=== PATIENT | male | born 1960 | race African-American/Black ===

== ENCOUNTER 2016-09-01 04:02 | Emergency (ER) | payer MEDICAID ==
[~2016-09-01] VITALS: Ht 172.7 cm; Wt 90.7 kg
[2016-09-01 04:16] VITALS: BP 151/91
== END 2016-09-01 06:29 | disposition left against medical advice (07) ==
LOC: ER 04:13
DX: R51 Headache (principal); Z53.21 Procedure and treatment not carried out due to patient leaving prior to being seen by health care provider; Y08.89XA Assault by other specified means, initial encounter; Y93.89 Activity, other specified; Y99.8 Other external cause status; Y92.89 Other specified places as the place of occurrence of the external cause